=== PATIENT | male | born 1995 | race African-American/Black ===

== ENCOUNTER → 2018-09-09 | Outpatient (REF) | payer OTHER, BC ==
[2018-09-09 16:34] LABS: ALBUMIN 4.2 GM/DL (3.2-5.2); ALT/SGPT 42 U/L (12-78); BILIRUBIN,TOTAL 0.3 MG/DL (0.2-1.0); BLOOD UREA NITROGEN 13 MG/DL (7-18); C REACTIVE PROTEIN QUANTITATIV < 0.30 MG/DL (0.00-0.30); CARBON DIOXIDE LEVEL 30 MEQ/L (21-32); CHLORIDE LEVEL 106 MEQ/L (98-107); CPK CREATINE PHOSPHOKINASE 214 U/L (39-308); CREATININE FOR GFR 0.92 MG/DL (0.70-1.30); GLOMERULAR FILTRATION RATE > 60.0 (>60); GLUCOSE, FASTING 78 MG/DL (70-100); LDH LACTATE DEHYDROGENASE 149 U/L (87-241); POTASSIUM SERUM 4.3 MEQ/L (3.5-5.1); RHEUMATOID FACTOR QUANT < 10.0 IU/ML (<15.0); SODIUM LEVEL 143 MEQ/L (136-145); TOTAL PROTEIN 7.8 GM/DL (6.4-8.2)
[2018-09-13 00:06] LABS: ALDOLASE 6.2 U/L (3.3-10.3); ANTI JO-1 ANTIBODIES <0.2 AI (0.0-0.9)
== END ==
LOC: M SFHCPLAZ 14:12
PROVIDERS: ATTEND Internal Medicine Rheumatology
DX: M79.10 Myalgia, unspecified site (principal)

== ENCOUNTER 2025-03-18 03:34 | Emergency (ER) | payer OTHER ==
[~2025-03-18] VITALS: Ht 188 cm; Wt 128.3 kg
[2025-03-18] MEDS ORDERED: ISOVUE-370 76% 100 ML VIAL As Ordered ONE (04:30)
[2025-03-18 04:51] LABS: BASO # 0.0 10^3/uL (0.0-0.2); BASO % 0.3 % (0.0-1.0); EOS # 0.2 10^3/uL (0.0-0.5); EOS % 2.2 % (0.0-3.0); LYMPH # 2.0 10^3/uL (1.5-5.0); LYMPH % 22.8 % (24.0-44.0); MONO # 0.6 10^3/uL (0.0-0.8); MONO % 6.8 % (2.0-8.0); NEUTROPHILS # 5.9 10^3/uL (1.5-8.5); NEUTROPHILS % 67.7 % (36.0-66.0); PLATELET COUNT, AUTOMATED 194 10^3/uL (150-450)
[2025-03-18] MEDS: diphenhydrAMINE 50 MG/ML VIAL IV STA (05:01)
[2025-03-18] MEDS: ACETAMINOPHEN *IV* 1,000 MG in IV 1 EA IV ONE (05:02)
[2025-03-18] MEDS: FAMOTIDINE 20 MG/2 ML VIAL IVP ONE (05:02)
[2025-03-18 05:04] LABS: INR 1.07
[2025-03-18 05:14] LABS: CK-MB VALUE MASS 14.3 NG/ML (<3.6); ETHYL ALCOHOL (ETHANOL) < 0.003 % (0.000-0.010)
[2025-03-18 05:16] LABS: ALT/SGPT 84 U/L (7.0-40); AST/SGOT 119 U/L (<34); CALCIUM LEVEL 9.3 MG/DL (8.5-10.1); CARBON DIOXIDE LEVEL 28 MMOL/L (20-31); CHLORIDE LEVEL 104 MMOL/L (98-107); CREATININE FOR GFR 0.93 MG/DL (0.70-1.30); GLOMERULAR FILTRATION RATE > 90.0 (>60); POTASSIUM SERUM 4.1 MMOL/L (3.5-5.1); SODIUM LEVEL 144 MMOL/L (136-145)
[2025-03-18] MEDS: LIDOCAINE 1% MDV 20 ML VIAL INFIL ONE (05:35)
[2025-03-18 05:41] LABS: CPK CREATINE PHOSPHOKINASE 3681 U/L (46-171); MB/CK RELATIVE INDEX 0.38 (< OR =4)
[2025-03-18 06:50] LABS: PLATELET COUNT, AUTOMATED 177 10^3/uL (150-450)
[2025-03-18 07:02] LABS: INR 1.02
[2025-03-18 07:36] LABS: ALT/SGPT 85 U/L (7.0-40); AST/SGOT 118 U/L (<34); CALCIUM LEVEL 9.3 MG/DL (8.5-10.1); CARBON DIOXIDE LEVEL 28 MMOL/L (20-31); CHLORIDE LEVEL 103 MMOL/L (98-107); CREATININE FOR GFR 0.90 MG/DL (0.70-1.30); GLOMERULAR FILTRATION RATE > 90.0 (>60); POTASSIUM SERUM 4.1 MMOL/L (3.5-5.1); SODIUM LEVEL 143 MMOL/L (136-145)
[2025-03-18] MEDS ORDERED: CETI5SOL3 PO (08:35)
[2025-03-18] MEDS ORDERED: EPIP0.3I2 IM (08:37)
[2025-03-18 08:57] VITALS: BP 131/69; TEMP 99.2; O2SAT 99
== END 2025-03-18 09:01 | disposition home or self-care (01) ==
LOC: M ED 03:34
DX: S01.01XA Laceration without foreign body of scalp, initial encounter (principal); W19.XXXA Unspecified fall, initial encounter; Y92.9 Unspecified place or not applicable; Y93.9 Activity, unspecified; Y99.9 Unspecified external cause status; K76.0 Fatty (change of) liver, not elsewhere classified; M40.204 Unspecified kyphosis, thoracic region; M51.379 Other intervertebral disc degeneration, lumbosacral region without mention of lumbar back pain or lower extremity pain
CPT/HCPCS: 12002; 70450; 71045; 71260; 72125; 72128; 72131; 74177; 80047; 80048; 80053; 80076; 82077; 82150; 82550; 82553; 83605; 83690; 84484; 85025; 85027; 85610; 85730; 86850; 86900; 86901; 93041; 94760; 99285; J0131; J1100; J1200; J1308; J3010; Q9967